=== PATIENT | male | born 2005 | race Hispanic/Latino ===

== ENCOUNTER 2024-07-31 17:35 | Emergency (ER) | payer BC, SELFPAY ==
[2024-07-31 17:40] VITALS: BP 145/78
--- NOTE | 2024-07-31 20:07 | ED.SKININJ ---
HPI-Injury
General
Chief Complaint: Bite
Time Seen by Provider: 07/31/24 19:56
History of Present Illness-Injury
Initial Injury comments:
18-year-old male no past medical history presenting with rash starting few days ago. Patient reports subjective fever and generalized bodyaches. Patient states that he works outside. Patient denies any known tick bites. Patient denies numbness,
weakness, tingling, cough or urinary symptoms.
Past History
Past History
ED Past Medical History: None
ED Past Surgical History: None
Social History
Tobacco: Non-smoker
Alcohol: None
Drug: None
Personal: Single
Living: with family
Phy Exam
Physical Exam
Physical Exam:
General: Alert, no acute distress
Head: NCAT
Eyes: clear conjunctiva
Neck: supple
Cardiac: regular rate and rhythm, no murmur
Lungs: clear to auscultation bilaterally. No wheezes, rales, or rhonchi. Speaking full unlabored sentences. No respiratory distress.
Abdomen: soft, nondistended nontender. No rebound or guarding.
MSK: no lower extremity edema bilaterally. No deformity
Skin: warm, dry. erythematous flat blanching Bull's-eye rash without central clearing to right calf
Neuro: Alert and oriented x3. no focal deficits
Course
Orders/Labs/Results
Orders:
Orders
07/31/24 20:04
Doxycycline [Vibramycin] 100 mg PO NOW STA
07/31/24 20:33
L[facility]
Vital Signs
Initial and Last Documented VS:
Initial Vital Signs
Temp Pulse Resp BP Pulse Ox
99.1 F 86 18 145/78 99
07/31/24 17:40 07/31/24 17:40 07/31/24 17:40 07/31/24 17:40 07/31/24 17:40
Last Documented Vital Signs
Temp Pulse Resp BP Pulse Ox
99.1 F 86 18 145/78 99
07/31/24 17:40 07/31/24 17:40 07/31/24 17:40 07/31/24 17:40 07/31/24 17:40
MDM/Problems Addressed
MDM/Problems Addressed:
18-year-old male presenting with rash, subjective fever worse over the past few days. Rash consistent with erythema migrans. Patient well-appearing. Concern for Lyme disease. Will start on doxycycline. Stable discharge with PCP follow-up
*Critical Care Note
Total Time (30-74mins, 75-104mins- exclusive of procedures): Not Applicable
ED Attending Note
-
Portions of this chart may have been created with voice recognition software.� Occasional wrong word or��sound alike� substitutions may have occurred due to the inherent limitations of voice recognition software.
Discharge Plan
Departure
Patient Disposition: Home (Routine Discharge)
Date of Disposition: 07/31/24
Time of Disposition: 20:08
Patient with high blood pressure during this ER visit?: Yes
Discharge Problem:
Lyme disease
Instructions: Lyme disease
Prescriptions:
New
doxycycline hyclate 100 mg capsule
100 mg PO BID 10 Days Qty: 20 0RF
No Action
fluticasone propionate [Flonase Allergy Relief] 50 mcg/actuation spray,suspension
2 spray intranasal DAILY Qty: 16 0RF
Activity Restrictions/Additional Instructions:
Take doxycycline twice daily for the next 10 days
Follow-up with primary care doctor in 2 to 3 days
Return to the emergency department for passing out or new/worsening symptoms
Interventions
Interventions:
*Risk Screen - Suicide Last Done: 07/31/24 17:41
*General Assessment Last Done: 07/31/24 17:41
*Neglect/Abuse Screening Last Done: 07/31/24 17:41
*ED- Fall Risk Assessment Last Done: 07/31/24 17:41
*ED COVID-19 Vaccine History Last Done: 07/31/24 17:41
*Nursing Disposition Last Done: 07/31/24 20:40
ED-Skin Assessment Last Done: 07/31/24 20:39
Discharge Date and Time
Discharge Date/Time: 07/31/24 20:41
Print Language: SAMMARINESE
[2024-07-31] MEDS: VIBRAMYCIN 100 MG PO (20:35)
[2024-08-03 13:57] LABS: Lyme Antibody Screen, EIA Negative (Negative)
== END 2024-07-31 20:41 | disposition home or self-care (01) ==
LOC: EMR 17:35
PROVIDERS: EMERGENCY PHYSICIAN Emergency Medicine
DX: A69.20 Lyme disease, unspecified (principal)
CPT/HCPCS: 99282; 86618